=== PATIENT | male | born 1945 | race Caucasian/White ===

== ENCOUNTER → 2023-07-02 | Outpatient (CLI) | payer MEDICARE ==
[~2023-07-02] MED LIST: LIDOCAINE-PRILOCAINE 2.5-2.5% CREAM 5 GM TUBE TOPICAL ONE
--- NOTE | 2023-07-02 14:14 | NM ---
EXAMINATION TYPE: NM stress lexiscan cardiolite DATE OF EXAM: 07/02/2023 COMPARISON: NONE CLINICAL INDICATION: Male, 78 years old with history of I20.89 OTHER FORMS OF ANGINA PECTORIS; TECHNIQUE: After the intravenous administration of 9.59 mCi Tc 99m Sestamibi - Cardiolite resting SP ECT images acquired 42 minutes post injection. The patient received 0.4mg Lexiscan, 25.9 mCi Tc 99m Sestamibi - Stress images obtained [address] injection FINDINGS: Review of stress and rest SPECT images demonstrates no distinct perfusion abnormality. Gated analysi s shows normal wall motion with an estimated left ventricular ejection fraction of 61 %. IMPRESSION: No scintigraphic evidence for reversible ischemia.
--- NOTE | 2023-07-02 17:51 | CA ---
Lexiscan Nuclear Stress Test Report Name: Figueroa Rocha Exam Date: 07/02/2023 10:45 Exam Location: [facility] Stress Ht (in): 68 Wt (lb): 135 BSA: 1.73 Ordering Phys: Jose J Meyers MD Referring Phys: Jose J Meyers MD Technologist: Chavez Irizarry Age: 78 Gender: M : 1945 Procedure CPT: Indications: I20.89 OTHER FORMS OF ANGINA PECTORIS ICD-10 Codes: Patient History: Medications: SYNTHROID Meds past 24 hrs: Pretest Chest Pain: STRESS TEST Lexiscan Protocol Exercise Duration (min:sec): 02:[address] Depressions (mm): Angina Score: Brantley Score: Resting HR (bpm): 65 Peak HR (bpm): 95 Resting BP (mmHg): 160 / 86 Peak BP (mmHg): 146 / 86 MPHR: 140 Target HR: 119 % MPHR: 68 METS: 1.0 Total Dose: Peak Dose: Atropine: Double Product: 84907 BP Response: Stress Termination: PROTOCOL COMPLETE Stress Symptoms: SHORTNESS OF BREATH Stress Summary: ECG ANALYSIS Resting ECG: Normal sinus rhythm normal axis normal intervals Stress ECG: Patient was given intravenous Lexiscan as a protocol did not have chest pain or diagnostic ST segment depression CONCLUSIONS Negative stress test by EKG criteria Cardiolite portion of stress test will be reported separately Dr. Marino Fulton MD (Electronically Signed) Final Date: 02 July 2023 17:50
== END | disposition home or self-care (01) ==
LOC: RADNMMAIN 08:52
PROVIDERS: ATTEND Family Medicine
DX: I20.89 Other forms of angina pectoris (principal)
CPT/HCPCS: 93017; 78452; A9500

== ENCOUNTER 2023-07-22 08:07 | Day surgery (SDC) | payer MEDICARE ==
[2023-07-22] MEDS: LACTATED RINGERS 1,000 ML IV SCH (09:57)
[2023-07-22] MEDS ORDERED: LIDOCAINE 2% (PF) 20 MG/ML 5 ML VIAL ONE (10:17)
[2023-07-22] MEDS ORDERED: PROPOFOL 10 MG/ML 20 ML VIAL IV ONE (10:17)
--- NOTE | 2023-07-22 10:31 | P.GSHP ---
History of Present Illness H&P Date: 07/22/23 Chief Complaint: GERD Is a 78-year-old male has complaints of GERD. Patient presents today for EGD. Past Medical History Past Medical History: COPD, GERD/Reflux, Thyroid Disorder Additional Past Medical History / Comment(s): epigastric pain for about 1 month, past hx. hiatal hernia, hx. polycythemia, recent issue w/low platelets History of Any Multi-Drug Resistant Organisms: None Reported Additional Past Surgical History / Comment(s): hital hernia surg-? loretta fundloplasty, colonoscopies, EGD's Past Anesthesia/Blood Transfusion Reactions: No Reported Reaction Smoking Status: Current every day smoker Medications and Allergies Home Medications Medication Instructions Recorded Confirmed Type Albuterol Inhaler [Ventolin Hfa 1 - 2 puff INHALATION BID 07/20/23 07/22/23 History Inhaler] Fluticasone/Vilanterol [Breo 1 each IH DAILY 07/20/23 07/22/23 History Ellipta 100-25 Mcg Inhalr] Levothyroxine Sodium [Synthroid] 137 mcg PO DAILY 07/20/23 07/22/23 History Omeprazole [PriLOSEC] 40 mg PO BID 07/20/23 07/22/23 History Allergies Allergy/AdvReac Type Severity Reaction Status Date / Time No Known Allergies Allergy Verified 07/22/23 09:55 Surgical - Exam Vital Signs Temp Pulse Resp BP Pulse Ox 97.8 F 78 18 134/83 100 07/22/23 10:08 07/22/23 10:08 07/22/23 10:08 07/22/23 10:08 07/22/23 10:08 - General well developed, well nourished, no distress - Eyes PERRL - ENT normal pinna - Neck no masses - Respiratory normal expansion - Abdomen Abdomen: soft, non tender Assessment and Plan Plan: GERD. We'll perform EGD.
--- NOTE | 2023-07-22 10:33 | P.OP ---
Date of Procedure: 07/22/23 Preoperative Diagnosis: GERD Postoperative Diagnosis: Antral gastritis Small hiatal hernia Procedure(s) Performed: EGD Anesthesia: MICHELLE Surgeon: Darryl Rosa Pathology: other (Antrum) Condition: stable Disposition: PACU Description of Procedure: Patient's placed on the endoscopy table in the lateral position. He received IV sedation. The gastro-/oropharynx passed in the esophagus and. Scope through the pylorus. The first and second portion of the duodenum appeared normal. Scope summer back the antrum and a biopsy was performed. This was minimal inflamed. Scope was unretroflexed and this appeared normal. There was a small riding hiatal hernia. The GE junction was at 38 cm. The distal esophagus appeared normal. The proximal esophagus. Normal. Scope withdrawn for patient.
[2023-07-22 10:34] VITALS: PULSE 78; RESP 18; TEMP 97.8
[2023-07-22 11:11] VITALS: BP 127/78
== END 2023-07-22 11:28 | disposition home or self-care (01) ==
LOC: ORWHC2ENDO 08:07
PROVIDERS: ATTEND Surgery
DX: K29.50 Unspecified chronic gastritis without bleeding (principal); K21.9 Gastro-esophageal reflux disease without esophagitis; K44.9 Diaphragmatic hernia without obstruction or gangrene; J44.9 Chronic obstructive pulmonary disease, unspecified; E07.9 Disorder of thyroid, unspecified; F17.200 Nicotine dependence, unspecified, uncomplicated; Z79.890 Hormone replacement therapy; Z79.899 Other long term (current) drug therapy
CPT/HCPCS: 88305; 43239; J2704; J2001

== ENCOUNTER → 2024-07-25 | Outpatient (CLI) | payer MEDICARE ==
--- NOTE | 2024-07-25 11:20 | CT ---
EXAMINATION TYPE: CT sinus wo con DATE OF EXAM: 07/25/2024 11:15 AM COMPARISON: None. CLINICAL INDICATION: Male, 79 years old with history of J32.9 Chronic sinusitis,unspecified; TECHNIQUE: Multiple thin axial images were obtained through the paranasal sinuses. Additional coronal and sagittal reformatted images were submitted for evaluation. Contrast used: none Oral contrast used: none CT DLP: 525 mGycm, Automated exposure control for dose reduction was used. FINDINGS: Frontal sinuses: Normally developed with scattered mild mucosal thickening. Frontal Recess: mild muco padma thickening bilaterally. Maxillary Sinuses: Normally developed with scattered mild mucosal thickening. Maxillary Infundibula([facility]): Mild narrowing due to mucosal thickening bilaterally., No Ryder cells id entified. Ethmoid sinuses: Normally developed with scattered mild mucosal thickening. Ethmoidal notch: Unprotec toro bilateral anterior ethmoidal arteries. Sphenoid sinuses: Normally developed and aerated. There is sellar sphenoid sinus pneumatization with out evidence of dehiscence. No dehiscence of carotid canal. No evidence of optic nerve dehiscence wi thin the sphenoid sinus. No evidence of Onodi cells. Sphenoethmoidal recesses: Clear. Nasal septum: Leftward deviated anteriorly and superiorly with bony spurring. Nasal Turbinates: Mild mucosal thickening of the inferior turbinates. Mastoid air cells & middle ears: The air cells are clear. The middle ears are grossly unremarkable. Modified Soft tissues & Brain: Partially seen without gross abnormality. Globes are intact. Other: Cribriform plate demonstrates symmetric Keros classification type 2 cribriform plate. No evidence of bony dehiscence of skull base. Lamina papyracea is intact without evidence of remote orbital fracture or orbital prolapse into the e thmoid sinus. Remote appearing nasal bone fracture bilaterally. Fixation hardware in the bilateral frontal and fron tammy bone and maxilla. There is incomplete osseous fusion of the frontal bone where the fixation appar atus. IMPRESSION: 1. Mild paranasal sinus disease.. 2. The ostiomeatal units, frontonasal and sphenoethmoidal recesses are mildly narrowed due to mucosal thickening. 3. Remote fracture of the nasal bone with fixation hardware in the frontal bone and maxilla bilateral ly. [facility], , 07/25/2024 11:17 AM
== END | disposition home or self-care (01) ==
LOC: RADCTMAIN 10:57
PROVIDERS: ATTEND Otolaryngology
DX: J32.9 Chronic sinusitis, unspecified (principal); J34.89 Other specified disorders of nose and nasal sinuses
CPT/HCPCS: 70486